=== PATIENT | female | born 1935 | race Caucasian/White ===

== ENCOUNTER 2017-04-24 11:17 | Emergency (ER) | payer MEDICARE, BC ==
[2017-04-24 12:25] LABS: #Basophils 0.1 thou/uL (0.0-0.2); #Eosinphils 0.2 thou/uL (0.0-0.7); #Lymphocytes 1.4 thou/uL (1.20-3.40); #Monocytes 0.6 thou/uL (0.11-0.59); #Neutrophils 2.6 thou/uL (1.40-6.50); %Basophils 1.3 % (0.0-1.0); %Eosinophils 3.7 % (0.0-10.0); %Lymphocytes 28.7 % (21.0-51.0); %Monocytes 11.8 % (0.0-10.0); Hematocrit 46.3 % (36.0-47.0); Mean Platelet Volume 7.1 fL (7.4-10.4); Red Blood Cell (RBC) Count 4.44 mill/uL (4.20-5.40); White Blood Cell (WBC) Count 4.8 thou/uL (4.8-10.8)
[2017-04-24] MEDS ORDERED: Ondansetron HCl/PF 4 MG/2 ML Vial ONE (12:37)
[2017-04-24] MEDS ORDERED: Morphine 4 MG/ML VIAL ONE (12:38)
--- NOTE | 2017-04-24 12:39 | RAD ---
PORTABLE CHEST ONE VIEW: Date: 04-24-17 Time: 12:14 p.m. History: Dyspnea. FINDINGS: Comparison is made with exam 06-02-16. There is continued elevation of the right hemidiaphragm. The heart size is enlarged. Left sided pacem aurelio is in place. No consolidation, pneumothorax, bhakti pleural edema or pleural effusions are seen. IMPRESSION: No acute process. POS: [facility]
[2017-04-24 12:47] LABS: ALT (SGPT) 15 U/L (8-55); AST (SGOT) 22 U/L (5-34); Alkaline Phosphatase 100 U/L (40-150); Anion Gap 17 mmol/L (10-20); BUN (Urea Nitrogen) 17 mg/dL (9.8-20.1); Bilirubin, Total 0.8 mg/dL (0.2-1.2); Calc. Creatinine Clearance 0 mL/min (70-130); Calcium 10.3 mg/dL (7.8-10.44); Carbon Dioxide 24 mmol/L (23-31); Chloride 102 mmol/L (98-107); Estimated GFR-MDRD 43; Lipase 8 U/L (8-78); Protein, Total 7.4 g/dL (6.0-8.3)
[2017-04-24 14:00] LABS: Bilirubin Negative (Negative); Blood, Urine Negative (Negative); Glucose, Urine (Dipstick) Negative (Negative); Ketone, Urine Negative (Negative); Nitrite Negative (Negative); Protein, Urine (Dipstick) Negative (Neg-Trace)
[2017-04-24 14:02] LABS: Bacteria/HPF Rare-Few HPF (None Seen); Hyaline Casts/LPF 0-3 HYALINE CAST LPF (0-3 Hyaline); RBC/HPF 0-3 HPF (0-3)
--- NOTE | 2017-04-24 14:54 | CT ---
CT ABDOMEN AND PELVIS WITH IV CONTRAST: 04/24/2017 PROVIDED CLINICAL HISTORY: Abdominal pain. COMPARISON: 06/02/2016 FINDINGS: There are several noncalcified nodular densities at the left lung base. The CT morphology of such harp ggests the possibility of infectious nodules. There is diffuse fatty infiltration of the liver. Sma ll hypodensities involve both the liver and the spleen, too small to definitively characterize but st atistically reflecting cysts and appearing not significantly changed with respect to the prior study. Calcified granulomata are seen involving the liver and spleen. Stable right adrenal nodule. The p ancreas and kidneys appear unremarkable. There is no bowel dilatation, inflammatory fat stranding, free fluid, or free air apparent. The appe ndix appears normal. The uterus is not visualized and is presumed surgically absent. The osseous structures demonstrate no concerning osteoblastic or osteolytic lesions. Degenerative ch anges are seen involving the spine. A cardiac pacing device is partially visualized. Minimal athero sclerotic vascular calcification. IMPRESSION: 1. No evidence for an acute intraabdominal process. 2. Subtle noncalcified pulmonary nodules are seen in the left lung base, which may reflect infectiou s pneumonitis. A follow-up chest CT in six weeks to further evaluate is recommended. POS: [facility]
--- NOTE | 2017-04-24 15:23 | CT ---
CT HEAD NONCONTRAST: History: Fall, head injury. Comparison: 04-01-16 FINDINGS: There is no evidence of acute intracranial hemorrhage or infarct. Diffuse cortical atrophy and chroni c ischemic small vessel disease are again demonstrated. There is no mass effect or shift of midline s tructures. Visualized paranasal sinuses remain well aerated. IMPRESSION: No acute intracranial abnormalities are demonstrated. POS: [facility]
--- NOTE | 2017-04-24 15:57 | CT ---
CT FACIAL BONES 04/24/17 PROVIDED CLINICAL HISTORY: Facial pain status post injury. FINDINGS: There is no evidence for facial bone fracture. The paranasal sinuses are free of significant opacity. The globes and other orbital contents appear normal. IMPRESSION: No evidence for fracture. POS: [facility]
--- NOTE | 2017-04-27 15:01 | EKG ---
Test Reason : Blood Pressure : / mmHG Vent. Rate : 070 BPM Atrial Rate : 069 BPM P-R Int : 142 ms QRS Dur : 088 ms QT Int : 408 ms P-R-T Axes : 124 044 060 degrees QTc Int : 440 ms Electronic atrial pacemaker Low voltage QRS Borderline ECG Confirmed by EVA CRESPO D.O. ([id number]), magazine editor BILLY SUAREZ ([id number]) on 04/27/2017 2:59:33 PM Referred By: Confirmed By:EVA CRESPO D.O.
== END 2017-04-24 17:08 | disposition home or self-care (01) ==
LOC: ERS 11:17
DX: J18.9 Pneumonia, unspecified organism (principal); I10 Essential (primary) hypertension; F41.9 Anxiety disorder, unspecified; F32.9 Major depressive disorder, single episode, unspecified; E03.9 Hypothyroidism, unspecified
CPT/HCPCS: 36415; 70450; 70486; 71010; 74177; 80053; 81003; 81015; 82550; 82553; 83690; 83735; 83880; 84484; 85025; 86140; 93005; 94640; 96361; 96374; 96375; J2270; J2405; J7620

== ENCOUNTER 2018-04-06 19:40 | Emergency (ER) | payer MEDICARE, BC ==
[2018-04-06 20:09] LABS: #Basophils 0.1 thou/uL (0.0-0.2); #Eosinphils 0.1 thou/uL (0.0-0.7); #Lymphocytes 2.1 thou/uL (1.20-3.40); #Monocytes 0.7 thou/uL (0.11-0.59); #Neutrophils 2.7 thou/uL (1.40-6.50); %Basophils 1.1 % (0.0-1.0); %Eosinophils 2.3 % (0.0-10.0); %Lymphocytes 36.7 % (21.0-51.0); %Monocytes 11.5 % (0.0-10.0); %Neutrophils 48.4 % (42.0-75.0); Hemoglobin 13.7 g/dL (12.0-16.0); Mean Corpuscular HGB CONC 33.5 g/dL (32.0-36.0); Mean Corpuscular Hemoglobin 32.5 pg (27.0-31.0); Mean Platelet Volume 7.2 fL (7.4-10.4); Platelet Count 228 thou/uL (130-400); RBC Distribution Width 11.4 % (11.5-14.5); White Blood Cell (WBC) Count 5.7 thou/uL (4.8-10.8)
--- NOTE | 2018-04-06 20:25 | RAD ---
AP VIEW PELVIS: 04/06/2018 HISTORY: Right hip pain after fall. FINDINGS: There is no evidence of a fracture or dislocation on the provided images. Phleboliths overly the pel vis. No other findings. IMPRESSION: No acute osseous abnormality is identified. Given the patient's right hip pain, dedicated views of t he right hip may be helpful for further evaluation. POS: [facility]
[2018-04-06 20:30] LABS: ALT (SGPT) 16 U/L (8-55); AST (SGOT) 21 U/L (5-34); Albumin 4.4 g/dL (3.4-4.8); Alkaline Phosphatase 80 U/L (40-150); Anion Gap 16 mmol/L (10-20); BUN (Urea Nitrogen) 17 mg/dL (9.8-20.1); Bilirubin, Total 0.4 mg/dL (0.2-1.2); CK (CPK) 163 U/L (29-168); Calc. Creatinine Clearance 0 mL/min (70-130); Carbon Dioxide 23 mmol/L (23-31); Chloride 106 mmol/L (98-107); Estimated GFR-MDRD 52; Globulin 2.9 g/dL (2.4-3.5); Glucose 108 mg/dL (83-110); Potassium 3.7 mmol/L (3.5-5.1); Protein, Total 7.3 g/dL (6.0-8.3); Sodium 141 mmol/L (136-145)
[2018-04-06 20:32] LABS: Bilirubin Negative (Negative); Blood, Urine Negative (Negative); Glucose, Urine (Dipstick) Negative (Negative); Leukocyte Negative (Negative); Nitrite Negative (Negative); Protein, Urine (Dipstick) Negative (Neg-Trace); Urobilinogen 0.2 mg/dL (0.2-1.0); pH, Urine 5.5 (5.0-9.0)
[2018-04-06 20:36] LABS: Clarity Clear (Clear); Specific Gravity, Urine 1.003 (1.002-1.036)
--- NOTE | 2018-04-06 21:13 | RAD ---
RIGHT HIP TWO VIEWS: 04/06/2018 HISTORY: Right hip pain after sliding out of recliner. 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 No fracture or dislocation is seen. No other findings. IMPRESSION: No acute osseous abnormality, right hip. POS: [facility]
--- NOTE | 2018-04-09 15:53 | EKG ---
Test Reason : Blood Pressure : / mmHG Vent. Rate : 070 BPM Atrial Rate : 150 BPM P-R Int : 000 ms QRS Dur : 090 ms QT Int : 402 ms P-R-T Axes : 000 057 058 degrees QTc Int : 434 ms Electronic atrial pacemaker Junctional ST depression, probably abnormal Abnormal ECG Confirmed by EDGAR NEWELL ([id number]), supervising editor news reel BILLY SUAREZ ([id number]) on 04/09/2018 3:53:12 PM Referred By: Confirmed By:EDGAR NEWELL
== END 2018-04-06 21:35 | disposition home or self-care (01) ==
LOC: ERS 19:40
DX: S70.01XA Contusion of right hip, initial encounter (principal); F10.129 Alcohol abuse with intoxication, unspecified; Y90.6 Blood alcohol level of 120-199 mg/100 ml; E03.9 Hypothyroidism, unspecified; I10 Essential (primary) hypertension; G47.30 Sleep apnea, unspecified; Z86.73 Personal history of transient ischemic attack (TIA), and cerebral infarction without residual deficits; F41.9 Anxiety disorder, unspecified; F32.9 Major depressive disorder, single episode, unspecified; Z87.891 Personal history of nicotine dependence; W08.XXXA Fall from other furniture, initial encounter
CPT/HCPCS: 72170; 80053; 80307; 81003; 82550; 85025; 93005

== ENCOUNTER 2018-04-12 15:54 | Emergency (ER) | payer MEDICARE, BC ==
[2018-04-12] MEDS ORDERED: traMADol HCl 50 MG TAB ONE (16:38)
--- NOTE | 2018-04-12 16:40 | CT ---
CT BRAIN NONCONTRAST: 04/12/18 HISTORY: 82-year-old female status post acute head injury due to fall. Nausea. FINDINGS: There is no midline shift or any other mass effect. There is no evidence of acute intracranial hemor rhage, large cortical infarct, or extraaxial fluid collection. The calvarium is intact. There is di ffuse parenchymal volume loss. There are low attenuation areas in the white matter. These are nonsp ecific, but in a patient of this age, they are probably chronic ischemic white matter changes due to microvascular atherosclerosis. There is mild to moderate ventriculomegaly, unchanged compared to 04/01 and 04/24/17. IMPRESSION: 1) No acute intracranial findings. 2) Involutional changes and chronic ischemic white matter changes. ab [] POS: [facility]
== END 2018-04-12 16:58 | disposition home or self-care (01) ==
LOC: ERS 15:54
DX: S00.03XA Contusion of scalp, initial encounter (principal); F41.9 Anxiety disorder, unspecified; F32.9 Major depressive disorder, single episode, unspecified; E03.9 Hypothyroidism, unspecified; I10 Essential (primary) hypertension; G47.30 Sleep apnea, unspecified; Z87.891 Personal history of nicotine dependence; Z79.891 Long term (current) use of opiate analgesic; Z79.899 Other long term (current) drug therapy; Z86.73 Personal history of transient ischemic attack (TIA), and cerebral infarction without residual deficits; Z79.01 Long term (current) use of anticoagulants; W01.10XA Fall on same level from slipping, tripping and stumbling with subsequent striking against unspecified object, initial encounter
CPT/HCPCS: 70450

== ENCOUNTER 2018-04-19 13:39 | Emergency (ER) | payer MEDICARE, BC ==
[2018-04-19 15:15] LABS: #Eosinphils 0.1 thou/uL (0.0-0.7); #Lymphocytes 1.3 thou/uL (1.20-3.40); #Monocytes 0.5 thou/uL (0.11-0.59); #Neutrophils 4.6 thou/uL (1.40-6.50); %Basophils 0.7 % (0.0-1.0); %Eosinophils 1.6 % (0.0-10.0); %Lymphocytes 19.3 % (21.0-51.0); %Monocytes 8.1 % (0.0-10.0); %Neutrophils 70.3 % (42.0-75.0); Hemoglobin 13.7 g/dL (12.0-16.0); Mean Corpuscular HGB CONC 32.7 g/dL (32.0-36.0); Mean Corpuscular Hemoglobin 32.2 pg (27.0-31.0); Mean Corpuscular Volume 98.3 fL (78.0-98.0); Mean Platelet Volume 7.6 fL (7.4-10.4); Platelet Count 215 thou/uL (130-400); RBC Distribution Width 11.6 % (11.5-14.5); Red Blood Cell (RBC) Count 4.26 mill/uL (4.20-5.40); White Blood Cell (WBC) Count 6.5 thou/uL (4.8-10.8)
[2018-04-19 15:23] LABS: INR-International Normal Ratio 1.1; PTT 35.5 SEC (22.9-36.1)
--- NOTE | 2018-04-19 15:27 | CT ---
CT BRAIN WITHOUT CONTRAST: Date: 04/19/18 HISTORY: Fall from standing, hitting back of head, without loss of consciousness, headache. FINDINGS: Comparison made with exam of 04/12/18. Changes of cortical atrophy and chronic small vessel ischemic disease are again seen. The ventricular size is stable and the basilar cisterns are patent. No evidence of acute infarct, hemorrhage, midline shift, or abnormal extra-axial fluid collections ar e seen. The bony calvarium is intact. The visualized paranasal sinuses and mastoid air cells are well aerated. IMPRESSION: No CT evidence of acute intracranial process. POS: [facility]
--- NOTE | 2018-04-19 15:28 | CT ---
CT CERVICAL SPINE WITH CORONAL AND SAGITTAL REFORMATIONS: Date: 04/19/18 HISTORY: Fall from standing, hitting back of head, without loss of consciousness. Neck pain. FINDINGS/IMPRESSION: There is loss of cervical lordosis. Multilevel degenerative changes are present. No fracture, subluxa tion, or facet malalignment is identified. POS: [facility]
[2018-04-19 15:33] LABS: ALT (SGPT) 15 U/L (8-55); AST (SGOT) 20 U/L (5-34); Albumin 4.1 g/dL (3.4-4.8); Alkaline Phosphatase 85 U/L (40-150); Anion Gap 12 mmol/L (10-20); BUN (Urea Nitrogen) 19 mg/dL (9.8-20.1); Bilirubin, Total 0.8 mg/dL (0.2-1.2); Calc. Creatinine Clearance 0 mL/min (70-130); Calcium 9.9 mg/dL (7.8-10.44); Carbon Dioxide 24 mmol/L (23-31); Chloride 105 mmol/L (98-107); Estimated GFR-MDRD 48; Globulin 2.9 g/dL (2.4-3.5); Glucose 94 mg/dL (83-110); Potassium 4.3 mmol/L (3.5-5.1); Sodium 137 mmol/L (136-145)
--- NOTE | 2018-04-19 17:13 | RAD ---
LUMBAR SPINE THREE VIEWS: 04/19/18 HISTORY: Fall. Low back pain. FINDINGS/IMPRESSION: Comparison made with the exam of 11/09/14. Multilevel degenerative changes are present. No acute fracture identified. Grade I anterolisthesis of L4 over L5 is stable. POS: [facility]
--- NOTE | 2018-04-25 15:19 | EKG ---
Test Reason : Blood Pressure : / mmHG Vent. Rate : 078 BPM Atrial Rate : 078 BPM P-R Int : 198 ms QRS Dur : 090 ms QT Int : 392 ms P-R-T Axes : 037 064 068 degrees QTc Int : 446 ms Normal sinus rhythm Normal ECG Confirmed by EMANUEL SIERRA M.D. ([id number]), assistant film editor BILLY SUAREZ ([id number]) on 04/25/2018 3:18:53 PM Referred By: Confirmed By:EMANUEL SIERRA M.D.
== END 2018-04-19 17:28 | disposition home or self-care (01) ==
LOC: ERS 13:39
DX: S06.0X0A Concussion without loss of consciousness, initial encounter (principal); S30.0XXA Contusion of lower back and pelvis, initial encounter; I10 Essential (primary) hypertension; E03.9 Hypothyroidism, unspecified; G47.30 Sleep apnea, unspecified; Z86.73 Personal history of transient ischemic attack (TIA), and cerebral infarction without residual deficits; F41.9 Anxiety disorder, unspecified; F32.9 Major depressive disorder, single episode, unspecified; Z87.891 Personal history of nicotine dependence; Z79.01 Long term (current) use of anticoagulants; Z79.899 Other long term (current) drug therapy; W19.XXXA Unspecified fall, initial encounter
CPT/HCPCS: 36415; 70450; 72100; 72125; 80053; 85025; 85610; 85730; 93005

== ENCOUNTER 2018-10-28 13:48 | Emergency (ER) | payer MEDICARE, BC ==
[~2018-10-28 13:48] MED LIST: ISOVUE-370 76%-LOCM 1 ML ONE
[2018-10-28 14:11] LABS: #Basophils 0.1 thou/uL (0.0-0.2); #Eosinphils 0.1 thou/uL (0.0-0.7); #Lymphocytes 1.7 thou/uL (1.20-3.40); #Monocytes 0.6 thou/uL (0.11-0.59); #Neutrophils 3.8 thou/uL (1.40-6.50); %Eosinophils 1.8 % (0.0-10.0); %Monocytes 10.2 % (0.0-10.0); Hemoglobin 14.9 g/dL (12.0-16.0); Mean Corpuscular HGB CONC 34.2 g/dL (32.0-36.0); Mean Corpuscular Volume 96.3 fL (78.0-98.0); Mean Platelet Volume 7.3 fL (7.4-10.4); Platelet Count 251 thou/uL (130-400); RBC Distribution Width 11.3 % (11.5-14.5); Red Blood Cell (RBC) Count 4.53 mill/uL (4.20-5.40); White Blood Cell (WBC) Count 6.3 thou/uL (4.8-10.8)
--- NOTE | 2018-10-28 14:22 | RAD ---
FRONTAL VIEW CHEST: INDICATION: Weakness with dizziness and cough. COMPARISON: Reference is made to 07/23/2018 exam. FINDINGS: Left-sided cardiac pacing device remains. Mild increased density of the lower chest bilaterally may relate to overlying body wall soft tissues. Otherwise, there is no lobar consolidation, significant effusion, or discrete pneumothorax. Cardiac silhouette is accentuated by portable technique, grossly stable. IMPRESSION: Added density at the lower chest bilaterally which may relate to superimposition of body wall soft ti ssues. Otherwise, no lobar consolidation is seen. POS: [facility]
[2018-10-28 14:38] LABS: ALT (SGPT) 13 U/L (8-55); AST (SGOT) 19 U/L (5-34); Albumin 4.4 g/dL (3.4-4.8); Alkaline Phosphatase 80 U/L (40-150); Anion Gap 16 mmol/L (10-20); BUN (Urea Nitrogen) 17 mg/dL (9.8-20.1); Bilirubin, Total 0.9 mg/dL (0.2-1.2); Calc. Creatinine Clearance 0 mL/min (70-130); Calcium 10.3 mg/dL (7.8-10.44); Carbon Dioxide 23 mmol/L (23-31); Chloride 102 mmol/L (98-107); Estimated GFR-MDRD 38; Globulin 3.1 g/dL (2.4-3.5); Glucose 144 mg/dL (83-110); Potassium 4.4 mmol/L (3.5-5.1); Protein, Total 7.5 g/dL (6.0-8.3); Sodium 137 mmol/L (136-145)
[2018-10-28 15:35] LABS: Bilirubin Negative (Negative); Blood, Urine Negative (Negative); Glucose, Urine (Dipstick) Negative (Negative); Leukocyte Negative (Negative); Nitrite Negative (Negative); Protein, Urine (Dipstick) Negative (Neg-Trace); Urobilinogen 0.2 mg/dL (Less than 2)
[2018-10-28 15:41] LABS: Clarity Clear (Clear)
--- NOTE | 2018-10-28 17:57 | CT ---
EXAM: CTA of the chest HISTORY: Dyspnea. Generalized weakness and lightheadedness for 2 to 3 days. Nonbloody diarrhea for 3 days. COMPARISON: 02/09/2016 TECHNIQUE: Multiple contiguous axial images were obtained a CTA of the chest with contrast per pulmon erwin embolism protocol. 3-D oblique MIP reformats and direct coronal reformats were performed. FINDINGS: HEART: Biventricular cardiomegaly. There is a pacer with its leads in the right atrium and ventricle. PULMONARY ARTERIES: Normal in caliber without filling defects to suggest pulmonary emboli. MEDIASTINUM: No hilar or mediastinal lymphadenopathy. LUNGS: No focal infiltrates or masses. Atelectasis in the lingula. PLEURAL SPACE: No pleural effusion or pneumothorax. CHEST WALL SOFT TISSUES: Unremarkable VISUALIZED OSSEOUS STRUCTURES: Degenerative changes in the spine VISUALIZED SUBDIAPHRAGMATIC STRUCTURES: Status post cholecystectomy. Calcified granulomas in the live r and spleen. IMPRESSION: No evidence of pulmonary thromboembolism
== END 2018-10-28 19:10 | disposition home or self-care (01) ==
LOC: ERS 13:48
DX: R53.1 Weakness (principal); R53.83 Other fatigue; I10 Essential (primary) hypertension; E03.9 Hypothyroidism, unspecified; G47.30 Sleep apnea, unspecified; Z86.73 Personal history of transient ischemic attack (TIA), and cerebral infarction without residual deficits; F41.9 Anxiety disorder, unspecified; F32.9 Major depressive disorder, single episode, unspecified; Z87.891 Personal history of nicotine dependence; Z79.899 Other long term (current) drug therapy; Z79.01 Long term (current) use of anticoagulants
CPT/HCPCS: 51701; 71045; 71275; 80053; 81003; 84484; 85025; 93005; 94760; 96360; A4353; J7620; Q9966

== ENCOUNTER 2020-02-09 12:47 | Outpatient (CLI) | payer MEDICARE, BC ==
--- NOTE | 2020-02-09 14:10 | MRI ---
MRI Lumbar Spine Noncontrast: HISTORY: Pain COMPARISON: None FINDINGS: The visualized retroperitoneal structures demonstrate a normal appearance. Conus medullaris is normal in morphology and terminates at the L1-2 level. Subcentimeter increased T2-weighted signal intensity focus is seen in the inferior endplate of L2 corrina tebral body with demonstrates slight heterogeneity on T1-weighted images. This probably represents a small atypical hemangioma. Mild generalized heterogeneity within the bone marrow with Schmorl's nod es seen at multiple levels of the upper lumbar spine and lower thoracic spine. There are large bridging osteophytes anteriorly and anterolaterally on the right involving the lower thoracic spine a nd thoracolumbar junction. There are minimal disc osteophyte complexes at the T10-11, T11-12, and T12-L1 levels with slight effa cement of ventral subarachnoid space at these levels and greatest at the T10-11 level where there is also mild bilateral neural foraminal narrowing. L1-2: Disc osteophyte complex and moderate facet hypertrophic changes as well as ligamentous thickeni ng and prominence of epidural fat posterior to thecal sac. Findings result in moderate to severe central canal narrowing with moderate bilateral neural foraminal narrowing. L2-3: Broad-based disc osteophyte complex and facet hypertrophic changes. There is generalized mild n arrowing of the central spinal canal with moderate bilateral neural foraminal narrowing. L3-4: Loss of intervertebral disc height. Broad-based disc osteophyte complex is present with moderat e to severe facet hypertrophic changes. There is prominence of epidural fat posterior to thecal sac. Moderate narrowing of the central spinal canal is present with moderate right and moderate to se wendi left-sided neural foraminal narrowing. L4-5: Trace grade 1 anterolisthesis of L4 on L5. Broad-based disc osteophyte complex is present with severe facet hypertrophic changes and ligamentous thickening. Findings result in severe central canal narrowing with moderate bilateral neural foraminal narrowing greater on the right. L5-S1: Mild posterior osteophyte formation with facet hypertrophic changes. There is mild encroachmen t on each neural foramen. Central spinal canal is patent. IMPRESSION: Multilevel degenerative changes in the lumbar spine greatest at the L3-4 level and L4-5 levels. There is severe central canal narrowing at the L4-5 level with moderate to severe left and moderate right-sided neural foraminal narrowing at the L3-4 level. Grade 1 anterolisthesis of L4 on L5.
== END 2020-02-09 12:48 | disposition home or self-care (01) ==
LOC: MRI 12:47
PROVIDERS: ATTEND Specialist
DX: M51.16 Intervertebral disc disorders with radiculopathy, lumbar region (principal); M47.26 Other spondylosis with radiculopathy, lumbar region; M48.061 Spinal stenosis, lumbar region without neurogenic claudication; M43.16 Spondylolisthesis, lumbar region
CPT/HCPCS: 72148

== ENCOUNTER 2021-12-16 19:42 | Inpatient (IN) | payer MEDICARE, BC ==
[2021-12-16 20:25] LABS: #Basophils 0.1 thou/uL (0.0-0.2); #Eosinphils 0.2 thou/uL (0.0-0.7); #Lymphocytes 1.4 thou/uL (1.20-3.40); #Monocytes 0.6 thou/uL (0.11-0.59); #Neutrophils 4.4 thou/uL (1.40-6.50); %Basophils 1.5 % (0.0-1.0); %Eosinophils 2.6 % (0.0-10.0); %Lymphocytes 20.3 % (21.0-51.0); %Monocytes 9.6 % (0.0-10.0); Hemoglobin 13.8 g/dL (12.0-16.0); Mean Corpuscular HGB CONC 33.2 g/dL (32.0-36.0); Mean Corpuscular Hemoglobin 32.7 pg (27.0-31.0); Mean Corpuscular Volume 98.4 fL (78.0-98.0); Mean Platelet Volume 8.2 fL (7.4-10.4); Platelet Count 190 thou/uL (130-400); RBC Distribution Width 12.2 % (11.5-14.5); Red Blood Cell (RBC) Count 4.23 mill/uL (4.20-5.40); White Blood Cell (WBC) Count 6.7 thou/uL (4.8-10.8)
[2021-12-16 20:46] LABS: ALT (SGPT) 15 U/L (8-55); AST (SGOT) 24 U/L (5-34); Albumin 3.7 g/dL (3.4-4.8); Alkaline Phosphatase 93 U/L (40-110); Anion Gap 17 mmol/L (10-20); BUN (Urea Nitrogen) 17 mg/dL (9.8-20.1); Bilirubin, Total 0.6 mg/dL (0.2-1.2); Calc. Creatinine Clearance 0 mL/min (70-130); Calcium 9.5 mg/dL (7.8-10.44); Carbon Dioxide 22 mmol/L (23-31); Chloride 106 mmol/L (98-107); Estimated GFR 40; Glucose 102 mg/dL (83-110); Potassium 4.1 mmol/L (3.5-5.1); Protein, Total 6.7 g/dL (5.8-8.1); Sodium 141 mmol/L (136-145)
[2021-12-16 21:13] LABS: CKMB 2.3 ng/mL (0-6.6)
[2021-12-16] MEDS ORDERED: Ondansetron PF 4 MG/2 ML Vial IVP PRN (23:00)
[2021-12-16] MEDS ORDERED: Acetaminophen 325 MG TAB PO PRN (23:00)
[2021-12-16] MEDS ORDERED: Ondansetron ODT 4 MG TAB SL PRN (23:00)
[2021-12-17 00:48] VITALS: BMI 43.7
[2021-12-17] MEDS ORDERED: Mirtazapine 30 MG TAB PO SCH (01:30)
[2021-12-17 02:31] LABS: #Basophils 0.1 thou/uL (0.0-0.2); #Eosinphils 0.2 thou/uL (0.0-0.7); #Lymphocytes 1.6 thou/uL (1.20-3.40); #Monocytes 0.6 thou/uL (0.11-0.59); #Neutrophils 3.8 thou/uL (1.40-6.50); %Basophils 1.3 % (0.0-1.0); %Eosinophils 2.7 % (0.0-10.0); %Lymphocytes 25.3 % (21.0-51.0); %Monocytes 8.8 % (0.0-10.0); %Neutrophils 61.9 % (42.0-75.0); Hemoglobin 13.5 g/dL (12.0-16.0); Mean Corpuscular HGB CONC 35.6 g/dL (32.0-36.0); Mean Corpuscular Hemoglobin 35.3 pg (27.0-31.0); Mean Corpuscular Volume 99.1 fL (78.0-98.0); Mean Platelet Volume 7.9 fL (7.4-10.4); Platelet Count 172 thou/uL (130-400); Red Blood Cell (RBC) Count 3.83 mill/uL (4.20-5.40); White Blood Cell (WBC) Count 6.2 thou/uL (4.8-10.8)
[2021-12-17 02:57] LABS: Troponin I 0.134 ng/mL (< 0.028)
[2021-12-17 03:07] LABS: Anion Gap 15 mmol/L (10-20); BUN (Urea Nitrogen) 17 mg/dL (9.8-20.1); Calc. Creatinine Clearance 74 mL/min (70-130); Calcium 9.4 mg/dL (7.8-10.44); Carbon Dioxide 23 mmol/L (23-31); Chloride 108 mmol/L (98-107); Estimated GFR 43; Glucose 115 mg/dL (83-110); Potassium 3.4 mmol/L (3.5-5.1); Sodium 143 mmol/L (136-145)
[2021-12-17 03:24] LABS: Thyroid Stimulating Hormone 0.6817 uIU/mL (0.35-4.94)
[2021-12-17] MEDS: Levothyroxine Sodium 112 MCG TAB PO SCH (04:31)
[2021-12-17] MEDS: Levothyroxine Sodium 25 MCG TAB PO SCH (04:31)
[2021-12-17] MEDS ORDERED: Potassium Chloride 20 MEQ TAB PO SCH (06:30)
[2021-12-17 06:55] LABS: Magnesium 1.8 mg/dL (1.6-2.6)
[2021-12-17] MEDS ORDERED: Non-Formulary Item 1 EACH (Levothyroxine Sodium [Synthroid] 137 MCG Tablet) PO SCH (09:00)
[2021-12-17] MEDS: Aripiprazole 2 MG TAB PO SCH (11:27)
[2021-12-17] MEDS: Furosemide 40 MG TAB PO SCH (11:29)
[2021-12-17] MEDS: Colchicine 0.6 MG TAB PO SCH (11:30)
[2021-12-17] MEDS: Loratadine 10 MG TAB PO SCH (11:30)
[2021-12-17] MEDS ORDERED: Aspirin 81 mg Enteric Coated Tablet PO SCH (13:00)
[2021-12-17] MEDS: Rivaroxaban 10 MG TAB PO SCH (18:14)
[2021-12-17] MEDS ORDERED: Mirtazapine 15 MG TAB PO SCH (21:00)
[2021-12-18 04:28] LABS: #Eosinphils 0.2 thou/uL (0.0-0.7); #Lymphocytes 1.9 thou/uL (1.20-3.40); #Monocytes 0.8 thou/uL (0.11-0.59); #Neutrophils 3.1 thou/uL (1.40-6.50); %Basophils 0.7 % (0.0-1.0); %Eosinophils 3.4 % (0.0-10.0); %Lymphocytes 31.9 % (21.0-51.0); %Monocytes 12.9 % (0.0-10.0); %Neutrophils 51.1 % (42.0-75.0); Hemoglobin 14.3 g/dL (12.0-16.0); Mean Corpuscular HGB CONC 32.5 g/dL (32.0-36.0); Mean Corpuscular Hemoglobin 32.3 pg (27.0-31.0); Mean Corpuscular Volume 99.4 fL (78.0-98.0); Platelet Count 193 thou/uL (130-400); RBC Distribution Width 12.2 % (11.5-14.5); Red Blood Cell (RBC) Count 4.42 mill/uL (4.20-5.40); White Blood Cell (WBC) Count 6.1 thou/uL (4.8-10.8)
[2021-12-18 04:49] LABS: Anion Gap 16 mmol/L (10-20); BUN (Urea Nitrogen) 15 mg/dL (9.8-20.1); Calc. Creatinine Clearance 72 mL/min (70-130); Calcium 9.9 mg/dL (7.8-10.44); Carbon Dioxide 24 mmol/L (23-31); Chloride 107 mmol/L (98-107); Estimated GFR 42; Glucose 109 mg/dL (83-110); Potassium 3.9 mmol/L (3.5-5.1); Sodium 143 mmol/L (136-145)
[2021-12-18] MEDS: Levothyroxine Sodium 25 MCG TAB PO SCH (06:02)
[2021-12-18] MEDS: Levothyroxine Sodium 112 MCG TAB PO SCH (06:02)
[2021-12-18] MEDS: Aripiprazole 2 MG TAB PO SCH (09:00)
[2021-12-18] MEDS ORDERED: DULoxetine 30 MG CAP PO SCH (09:00)
[2021-12-18] MEDS ORDERED: Nitrofurantoin Macrocrystal 50 MG CAP PO SCH (09:00)
[2021-12-18] MEDS ORDERED: Aspirin 81 mg Enteric Coated Tablet PO SCH (09:00)
[2021-12-18] MEDS: Loratadine 10 MG TAB PO SCH (09:01)
[2021-12-18] MEDS: Furosemide 40 MG TAB PO SCH (09:01)
[2021-12-18] MEDS: Colchicine 0.6 MG TAB PO SCH (09:02)
[2021-12-18 16:32] VITALS: BP 151/92; TEMP 97.7
[2021-12-18] MEDS: Rivaroxaban 10 MG TAB PO SCH (17:22)
== END 2021-12-18 18:10 | disposition home or self-care (01) | DRG 281 ==
LOC: ERS 19:42 → 2NO 22:53 → OBSVTOIN 12-17 13:35
PROVIDERS: ADMIT Family Medicine; ATTEND Family Medicine
PROC: 4B02XSZ Measurement of Cardiac Pacemaker, External Approach (ICD-10-PCS; principal; 2021-12-18)
DX: I48.21 Permanent atrial fibrillation (principal); I21.A1 Myocardial infarction type 2; Z68.41 Body mass index [BMI] 40.0-44.9, adult; I42.9 Cardiomyopathy, unspecified; Z20.822 Contact with and (suspected) exposure to COVID-19; I12.9 Hypertensive chronic kidney disease with stage 1 through stage 4 chronic kidney disease, or unspecified chronic kidney disease; N18.30 Chronic kidney disease, stage 3 unspecified; G47.33 Obstructive sleep apnea (adult) (pediatric); G89.29 Other chronic pain; M54.9 Dorsalgia, unspecified; F03.90 Unspecified dementia, unspecified severity, without behavioral disturbance, psychotic disturbance, mood disturbance, and anxiety; F41.9 Anxiety disorder, unspecified; F32.A Depression, unspecified; E03.9 Hypothyroidism, unspecified; E87.6 Hypokalemia; E66.01 Morbid (severe) obesity due to excess calories; R29.6 Repeated falls; Z91.81 History of falling; Z88.5 Allergy status to narcotic agent; Z79.899 Other long term (current) drug therapy; Z86.711 Personal history of pulmonary embolism; Z99.89 Dependence on other enabling machines and devices; Z79.01 Long term (current) use of anticoagulants; Z90.49 Acquired absence of other specified parts of digestive tract; Z90.89 Acquired absence of other organs; Z95.0 Presence of cardiac pacemaker; Z98.42 Cataract extraction status, left eye; Z98.41 Cataract extraction status, right eye; Z87.891 Personal history of nicotine dependence; Z91.14 Patient's other noncompliance with medication regimen
CPT/HCPCS: 36415; 70450; 71045; 72100; 72125; 80048; 80053; 82553; 82607; 83735; 84443; 84484; 85025; 93005; 93306; G0378; U0003; U0005

== ENCOUNTER 2024-01-31 09:28 | Emergency (ER) | payer MEDICARE, BC ==
[2024-01-31] MEDS ORDERED: Morphine 4 MG/ML VIAL ONE (11:39)
[2024-01-31 12:11] LABS: #Basophils 0.03 10x3/uL (0.0-0.2); %Basophils 0.5 % (0.0-1.0); %Lymphocytes 14.8 % (21.0-51.0); %Neutrophils 72.4 % (42.0-75.0); Hematocrit 36.9 % (36.0-47.0); Hemoglobin 11.6 g/dL (12.0-16.0); Mean Corpuscular HGB CONC 31.4 g/dL (32.0-36.0); Mean Corpuscular Hemoglobin 31.4 pg (27.0-31.0); Mean Corpuscular Volume 99.7 fL (78.0-98.0); Mean Platelet Volume 9.8 fL (7.4-10.4); Platelet Count 184 10x3/uL (130-400); RBC Distribution Width 13.3 % (11.5-14.5)
[2024-01-31 12:36] LABS: Troponin I 0.011 ng/mL (< 0.028)
[2024-01-31 12:39] LABS: ALT (SGPT) 13 U/L (8-55); AST (SGOT) 31 U/L (5-34); Albumin 3.5 g/dL (3.4-4.8); Alkaline Phosphatase 110 U/L (40-110); Anion Gap 12 mmol/L (10-20); BUN (Urea Nitrogen) 25 mg/dL (9.8-20.1); Bilirubin, Total 0.9 mg/dL (0.2-1.2); Calc. Creatinine Clearance 0 mL/min (70-130); Calcium 9.7 mg/dL (7.8-10.44); Carbon Dioxide 27 mmol/L (23-31); Chloride 103 mmol/L (98-107); Estimated GFR 50; Glucose 94 mg/dL (83-110); Protein, Total 6.5 g/dL (5.8-8.1); Sodium 137 mmol/L (136-145)
== END 2024-01-31 14:08 | disposition home or self-care (01) ==
LOC: ERS 09:28
DX: S40.012A Contusion of left shoulder, initial encounter (principal); I10 Essential (primary) hypertension; I48.91 Unspecified atrial fibrillation; E03.9 Hypothyroidism, unspecified; E78.5 Hyperlipidemia, unspecified; E66.9 Obesity, unspecified; Z95.0 Presence of cardiac pacemaker; Z90.49 Acquired absence of other specified parts of digestive tract; Z79.01 Long term (current) use of anticoagulants; Z79.899 Other long term (current) drug therapy; Z87.891 Personal history of nicotine dependence; Z86.711 Personal history of pulmonary embolism; Z86.73 Personal history of transient ischemic attack (TIA), and cerebral infarction without residual deficits; W19.XXXA Unspecified fall, initial encounter; Y92.129 Unspecified place in nursing home as the place of occurrence of the external cause
CPT/HCPCS: 70450; 71045; 73060; 73090; 80053; 84484; 85025; 93005; 96374; 99284; J2272

== ENCOUNTER 2024-03-17 06:00 | Day surgery (SDC) | payer MEDICARE, BC ==
[2024-03-16 11:43] VITALS: BMI 37.8
[2024-03-17] MEDS ORDERED: PROPOFOL 40 ML ONE (06:58)
[2024-03-17] MEDS ORDERED: Sodium Chloride 0.9% 100 ML ONE (07:06)
[2024-03-17] MEDS ORDERED: Phenylephrine 10 MG/ML VIAL ONE (07:06)
[2024-03-17] MEDS ORDERED: Lidocaine 1% PF 5 ML VIAL ONE (07:53)
[2024-03-17] MEDS ORDERED: Ondansetron PF 4 MG/2 ML Vial ONE (08:19)
== END 2024-03-17 09:25 ==
LOC: SDC 06:00
PROVIDERS: ATTEND Internal Medicine
PROC: 0DB58ZX Excision of Esophagus, Via Natural or Artificial Opening Endoscopic, Diagnostic (ICD-10-PCS; principal; 2024-03-17)
PROC: 0DB78ZX Excision of Stomach, Pylorus, Via Natural or Artificial Opening Endoscopic, Diagnostic (ICD-10-PCS; 2024-03-17)
DX: K31.89 Other diseases of stomach and duodenum (principal); K21.00 Gastro-esophageal reflux disease with esophagitis, without bleeding; B37.81 Candidal esophagitis; K59.09 Other constipation; K58.9 Irritable bowel syndrome, unspecified; I10 Essential (primary) hypertension; I25.10 Atherosclerotic heart disease of native coronary artery without angina pectoris; I42.9 Cardiomyopathy, unspecified; I26.99 Other pulmonary embolism without acute cor pulmonale; E78.5 Hyperlipidemia, unspecified; E03.9 Hypothyroidism, unspecified; F32.A Depression, unspecified; F03.90 Unspecified dementia, unspecified severity, without behavioral disturbance, psychotic disturbance, mood disturbance, and anxiety; F41.9 Anxiety disorder, unspecified; G47.30 Sleep apnea, unspecified; Z98.49 Cataract extraction status, unspecified eye; Z90.49 Acquired absence of other specified parts of digestive tract; Z90.710 Acquired absence of both cervix and uterus; Z90.89 Acquired absence of other organs; Z96.653 Presence of artificial knee joint, bilateral; Z87.891 Personal history of nicotine dependence; Z86.73 Personal history of transient ischemic attack (TIA), and cerebral infarction without residual deficits; Z88.5 Allergy status to narcotic agent; Z79.01 Long term (current) use of anticoagulants; Z79.899 Other long term (current) drug therapy
CPT/HCPCS: 43239; J2371; J2405; J2704; 88305; 88312

== ENCOUNTER → 2024-06-19 | Day surgery (SDC) | payer MEDICARE, BC | LOC: SDC 12:48 | PROVIDERS: ATTEND Internal Medicine | PROC: 4A1B7BZ Monitoring of Gastrointestinal Pressure, Via Natural or Artificial Opening (ICD-10-PCS; principal; 2024-06-19) | DX: R13.19 Other dysphagia (principal); K59.00 Constipation, unspecified; I10 Essential (primary) hypertension; I25.2 Old myocardial infarction; E78.00 Pure hypercholesterolemia, unspecified; E03.9 Hypothyroidism, unspecified; F03.918 Unspecified dementia, unspecified severity, with other behavioral disturbance; F32.A Depression, unspecified; F41.9 Anxiety disorder, unspecified; K21.9 Gastro-esophageal reflux disease without esophagitis; Z95.0 Presence of cardiac pacemaker; Z87.59 Personal history of other complications of pregnancy, childbirth and the puerperium; Z87.891 Personal history of nicotine dependence; Z86.73 Personal history of transient ischemic attack (TIA), and cerebral infarction without residual deficits; Z98.49 Cataract extraction status, unspecified eye; Z90.49 Acquired absence of other specified parts of digestive tract; Z90.710 Acquired absence of both cervix and uterus; Z88.5 Allergy status to narcotic agent; Z79.890 Hormone replacement therapy; Z79.01 Long term (current) use of anticoagulants; Z79.51 Long term (current) use of inhaled steroids; Z79.899 Other long term (current) drug therapy | CPT/HCPCS: 91010 ==